=== PATIENT | male | born 1990 | race African-American/Black ===

== ENCOUNTER 2023-03-26 03:37 | Emergency (ER) | payer BC, MEDICAID ==
[~2023-03-26] VITALS: Ht 182.9 cm; Wt 90.7 kg
[2023-03-26 03:41] VITALS: BP 99/68
--- NOTE | 2023-03-26 03:41 | NUR ---
[facility] ALS TO BED #6
--- NOTE | 2023-03-26 04:02 | NUR ---
32YR OLD MALE BIB EMS C/O DEJA LEG PAIN. 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 8/10 SHARP PAIN LEVEL. CHRONIC. RESP EVEN AND UNLABORED. A&OX4. +SWELLING +PEDAL PULSES. DENIES SOB OR CP HALDOL BENADRYL
[2023-03-26] MEDS ORDERED: KETOROLAC 60 MG/2 ML VIAL IM ONE (04:20)
--- NOTE | 2023-03-26 04:26 | NUR ---
Patient being evaluated by physician at bedside.
[2023-03-26] MEDS ORDERED: IBUP-2213 PO (04:37)
--- NOTE | 2023-03-26 05:53 | NUR ---
Patient discharged with v/s stable. Written and verbal after care instructions given and explained. Patient verbalized understanding. Ambulatory with steady gait. All questions addressed prior to discharge. Advised to follow up with PMD.
== END 2023-03-26 05:53 | disposition home or self-care (01) ==
LOC: MED 03:37
DX: M25.552 Pain in left hip (principal); Z88.8 Allergy status to other drugs, medicaments and biological substances; Z79.899 Other long term (current) drug therapy
CPT/HCPCS: 93005; 96372; 99283; J1885

== ENCOUNTER 2023-11-25 18:56 | Emergency (ER) | payer BC, MEDICAID ==
[~2023-11-25] VITALS: Ht 180.3 cm; Wt 81.6 kg
[2023-11-25 18:56] VITALS: BP 109/69; PULSE 101; RESP 17; TEMP 98.7; O2SAT 99
[~2023-11-25 18:56] MED LIST: IBUP-2213 PO
[2023-11-25 19:25] LABS: ANION GAP 6.3 (8-16); CALCIUM 8.7 mg/dL (8.5-10.1); CREATININE 0.9 mg/dL (0.6-1.3); POTASSIUM 4.3 mmol/L (3.5-5.1)
[2023-11-25 19:26] LABS: BASOPHILS % (AUTO) 0.9 % (0.0-2.0); EOSINOPHILS # (AUTO) 0.4 K/uL (0-0.4); EOSINOPHILS % (AUTO) 8.2 % (0.0-4.0); HEMATOCRIT 39.5 % (36-52); HEMOGLOBIN 13.1 g/dL (12.0-18.0); LYMPHOCYTES # (AUTO) 1.5 K/uL (2.0-11.5); MEAN CORPUSCULAR HEMOGLOBIN 28 pg (27-31); MEAN CORPUSCULAR HGB CONC 33 g/dL (33-37); MEAN CORPUSCULAR VOLUME 82.9 fL (80-94); MONOCYTES # (AUTO) 0.5 K/uL (0.8-1.0); MONOCYTES % (AUTO) 10.1 % (1.7-9.3); NEUTROPHILS # (AUTO) 2.4 K/uL (1.8-7.7); NEUTROPHILS % (AUTO) 49.8 % (42.2-75.2); PLATELET COUNT (AUTO) 210 K/uL (140-450); RED BLOOD CELL COUNT(AUTO) 4.76 MIL/uL (4.20-6.10); RED CELL DISTRIBUTION WIDTH 15.8 % (11.6-13.7); WHITE BLOOD COUNT (AUTO) 4.7 K/uL (4.8-10.8)
[2023-11-25 19:30] LABS: SALICYLATE < 2.8 mg/dL (2.8-20.0)
[2023-11-25 19:31] LABS: ACETAMINOPHEN < 0.5 ug/ml (10-30); ALCOHOL, BLOOD < 3 mg/dL (<10)
[2023-11-25 20:00] LABS: APPEARANCE,URINE CLEAR (CLEAR); BILIRUBIN,URINE NEGATIVE (NEGATIVE); BLOOD, URINE NEGATIVE (NEGATIVE); COLOR,URINE YELLOW (YELLOW); LEUKOCYTE ESTERASE ,URINE NEGATIVE (NEGATIVE); NITRITE, URINE NEGATIVE (NEGATIVE); PROTEIN,URINE NEGATIVE (NEGATIVE); UGLUCOSE NEGATIVE (NEGATIVE); UROBILINOGEN,URINE 0.2 EU/dL (0.2 - 1)
[2023-11-25] MEDS ORDERED: ACETAMINOPHEN EXTRA STRENGTH 500 MG TAB PO ONE (20:00)
[2023-11-25 20:19] LABS: AMPHETAMINE, URINE NEGATIVE ng/ml (NEG <=1000); BARBITURATE, URINE NEGATIVE ng/ml (NEG <=200); BENZODIAZEPINE, URINE POSITIVE ng/mL (NEG <=200); CANNABINOID, URINE NEGATIVE ng/mL (NEG <=50); COCAINE, URINE NEGATIVE ng/mL (NEG <=300); OPIATE, URINE NEGATIVE ng/mL (NEG <=2000); PHENCYCLIDINE SCREEN,URINE NEGATIVE ng/mL (NEG <=25)
[2023-11-26 07:30] VITALS: BP 109/69; PULSE 101; RESP 17; TEMP 98.7; O2SAT 99
[2023-11-26] MEDS ORDERED: PARoxetine 10 MG TAB PO SCH (17:00)
[2023-11-26] MEDS ORDERED: OLANZapine 5 MG ODT PO ONE (17:00)
== END 2023-11-26 08:30 | disposition left against medical advice (07) ==
LOC: MED 18:56
DX: R45.851 Suicidal ideations (principal); Z20.822 Contact with and (suspected) exposure to COVID-19; R60.9 Edema, unspecified; Z79.899 Other long term (current) drug therapy
CPT/HCPCS: 36415; 80048; 80305; 81003; 83880; 85025; 87426; 99285; G0480; G0482